=== PATIENT | male | born 1995 | race Native Hawaiian/Other Pacific Islander ===

== ENCOUNTER 2022-07-07 22:20 | Emergency (ER) | payer OTHER ==
[~2022-07-07] VITALS: Ht 165.1 cm; Wt 52.2 kg
[2022-07-07 22:30] VITALS: TEMP 98.5
[2022-07-07 23:32] LABS: PLATELET COUNT 220 K/uL (142-355)
[2022-07-08 09:00] VITALS: BP 105/67
== END 2022-07-08 09:20 | disposition still patient (30) ==
LOC: ED 22:20
PROVIDERS: Emergency Medicine Emergency Medical Services
DX: N13.2 Hydronephrosis with renal and ureteral calculous obstruction (principal); R10.11 Right upper quadrant pain
CPT/HCPCS: 36415; 80048; 81000; 85027; 96360; 96361; 96365; 96375; 96376; 99284; J1170; J1885; J1956; J2270; J2405; Q9963